=== PATIENT | female | born 2000 | race Caucasian/White ===

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

== ENCOUNTER 2021-01-15 12:35 | Emergency (ER) | payer OTHER, MEDICAID, SELFPAY ==
[2021-01-15 12:38] VITALS: BP 131/97; PULSE 126; RESP 18; TEMP 37.4; O2SAT 100; BMI 38.9
--- NOTE | 2021-01-15 16:51 | ED.FEMALEGU ---
HPI - Female Genitourinary General Chief complaint: Urogenital-Female Stated complaint: PAIN IN BACK/STOMACH, DX C-DIF Time Seen by Provider: 01/15/21 15:17 Source: patient Mode of arrival: Ambulatory Limitations: no limitations History of Present Illness HPI Narrative: The patient presents with left flank pain radiating to the left lower abdomen. With this she has dysuria, no hematuria. She was seen at a different ER 2 days ago. She was initially told that she has a UTI, but the urine showed multiple evelina. Apparently C diff was diagnosed. She was initially prescribed Metronidazole. Her doctor started on vancomycin. She is here now with the abdominal pain and dysuria is noted. She has flank pain, no mid back pain. She has no URI symptoms. She has no fever chills. She has no nausea, or vomiting. She is having loose bowel movements. Related Data Home Medications Medication Instructions Recorded Confirmed aripiprazole 2 mg tablet (Abilify) 2 mg PO DAILY tab 06/22/19 08/21/20 duloxetine 20 mg capsule,delayed 20 mg PO DAILY cap 06/22/19 08/21/20 release (Cymbalta) lithium carbonate 300 mg capsule 300 mg PO BEDTIME 07/21/20 08/21/20 Previous Rx's Medication Instructions Recorded ondansetron 4 mg disintegrating 4 mg PO Q8-12H PRN #7 tab 08/02/20 tablet oxycodone 5 mg tablet 5 mg PO Q4H PRN #20 tab 08/21/20 sulfamethoxazole 800 1 tab PO BID 7 Days #14 tab 01/15/21 mg-trimethoprim 160 mg tablet Allergies Allergy/AdvReac Type Severity Reaction Status Date / Time ibuprofen AdvReac Intermediate Verified 01/15/21 12:47 Review of Systems Constitutional Constitutional: Denies chills, Denies fatigue, Denies fever(s) and Denies malaise Cardiovascular Cardiovascular: Denies chest pain Respiratory Respiratory: Denies chest congestion and Denies cough Gastrointestinal Gastrointestinal: Reports as per HPI Genitourinary Genitourinary: Reports as per HPI Musculoskeletal Comments: Left flank pain, see HPI. Integumentary/Breasts Skin/Breast: Denies rash Endocrine Endocrine: Denies fatigue Patient History Medical History Back pain Bipolar disorder Family history of endometriosis Frequent UTI High risk sexual behavior History of chlamydia History of use of contraceptive intrauterine device (IUD) IBS (irritable bowel syndrome) Obesity (BMI 30-39.9) Surgical History History of tonsillectomy tobacco type: cigarettes and vaping alcohol intake frequency: holidays/special occasions only Substance Use Type: marijuana Exam Initial Vital Signs Initial Vital Signs: Vital Signs Temperature 99.3 F 01/15/21 12:38 Pulse Rate 126 H 01/15/21 12:38 Respiratory Rate 18 01/15/21 12:38 Blood Pressure 131/97 H 01/15/21 12:38 Pulse Oximetry 100 01/15/21 12:38 Const General: cooperative, healthy appearing and comfortable HENMT Head: normocephalic and atraumatic Resp Auscultation: clear to auscultation bilaterally Cardio Rate: regular rate Rhythm: regular rhythm Heart Sounds: S1 normal, S2 normal and no murmurs GI Other: Tender in LQ without distention, guarding rebound. No masses. Back/Spine/Pelvis Other: Right flank pain, no true CVAT. Skin General: no rashes or lesions noted Neuro General: patient alert, patient awake, patient oriented x3 and no focal motor deficits Course Course Course Narrative: Labs are consistent with UTI. She has left flank pain not true CVAT. I will initiate care with Rocephin IM. Toradol was given for pain. She was discharged on DS. This is all with raise concern that she is already on vancomycin for C diff. she is to follow-up with her doctor next week. Orders Ordered: ED Orders 01/15/21 17:22 Urine Culture Stat Urine Microscopic Stat Vital Signs Vital signs: Vital Signs - 8 hr 01/15/21 12:38 Temperature 99.3 F Pulse Rate 126 H Respiratory Rate 18 Blood Pressure 131/97 H Pulse Oximetry 100 MDM - Female Genitourinary Lab Data Labs: Lab Results 01/15/21 Range/Units 17:22 Urine RBC 5-10/hpf H (0-5/HPF) Urine WBC 30-100/hpf H (0-5/HPF) Ur Squamous Epith Cells 1-5 /hpf (0-5/HPF) Ur Transition Epith Cell 5-10/hpf H (0-5/HPF) Urine Bacteria Many (>30) H (None) Ur Culture Indicated? Specimen cultured Point of Care Testing Test Results Negative Urine Dip Bedside Urine Glucose Negative Bedside Urine Bilirubin - Negative Bedside Urine Ketone - Negative Urine Specific [place] 1.015 Bedside Urine Occult Blood ++ Bedside Urine pH 7.5 Bedside Urine Protein + 30 Bedside Urine Urobilinogen 0.2 Bedside Urine Nitrite - Negative Bedside Urine Leukocytes + 70 Esterase Discharge Plan Departure Clinical Impression: Urinary tract infection Instructions: DI for Urinary Tract Infection (UTI) Activity Restrictions/Additional Instructions: Be sure you are drinking plenty of water. Septra DS 2 times daily for 7 days. Continue vancomycin. The addition of the antibiotic for the UTI raises concern for treatment for the C diff. follow-up with your doctor next week to recheck. I suspect she will require longer treatment. Return here for increased pain or fever. Prescriptions: New sulfamethoxazole-trimethoprim 800-160 mg tablet 1 tab PO BID 7 Days Qty: 14 RF: 0 No Action aripiprazole [Abilify] 2 mg tablet 2 mg PO DAILY RF: 0 duloxetine [Cymbalta] 20 mg capsule,delayed release(DR/EC) 20 mg PO DAILY RF: 0 lithium carbonate 300 mg capsule 300 mg PO BEDTIME RF: 0 oxycodone 5 mg tablet 5 mg PO Q4H PRN (Reason: pain) Qty: 20 RF: 0 ondansetron 4 mg tablet,disintegrating 4 mg PO Q8-12H PRN (Reason: nausea and vomiting) Qty: 7 RF: 0 Referrals: Rajesh Frazier ARNP [Primary Care Provider] -
[2021-01-15 17:54] LABS: RBC Urine 5-10/HPF (0-5/HPF); Squamous Epithelial Cell Urine 1-5 /HPF (0-5/HPF); Transitional Epi Cells Urine 5-10/HPF (0-5/HPF); WBC Urine 30-100/HPF (0-5/HPF)
[2021-01-15 17:55] LABS: Bacteria Urine Many (>30); Culture Indicated Urine Specimen Cultured
[2021-01-15] MEDS: KETOROLAC 30 MG/ML VIAL IM (18:31)
[2021-01-15 18:42] VITALS: BP 124/82; PULSE 93; RESP 18; O2SAT 99
[2021-01-15] MEDS: cefTRIAXone 1,000 MG VIAL 1000 MG IM (18:50)
== END 2021-01-15 18:55 | disposition home or self-care (01) ==
PROVIDERS: Emergency Provider Emergency Medicine; PCP Nurse Practitioner Primary Care
DX: N39.0 Urinary tract infection, site not specified (principal); R30.0 Dysuria
CPT/HCPCS: 81003; 81015; 81025; 87077; 87086; 87186; 96372; 99283; J0696; J1885